=== PATIENT | female | born 1965 | race Caucasian/White ===

== ENCOUNTER 2022-02-09 13:37 | Outpatient (CLI) | payer BC, SELFPAY ==
--- NOTE | 2022-02-09 13:30 | CRLHL7_ITS ---
For Patients: As a result of the Century Cures Act, medical imaging exams and procedure reports are released immediately into your electronic medical record. You may view this report before your referring provider. If you have questions, please contact your health care provider. DXA BONE MINERAL DENSITY STUDY Current height (in): 69.0. Weight (lb): 150.0. Menopause age: 47. Ethnicity: White. Reason for exam: Screening. 1. Have you had a previous hip or vertebral fracture? No. 2. Have you had any fractures during your adult life which did not result from significant trauma (e.g., auto accident)? No. 3. Did either of your parents have a hip fracture? No. 4. Do you smoke? No. 5. Have you ever taken Glucocorticoids? No. 6. Do you have rheumatoid arthritis? No. 7. Do you have secondary osteoporosis? No. 8. Do you drink 3 or more alcoholic drinks per day? No. 9. Are you being treated for osteoporosis? No. 10. Have you ever taken any of the following medications: Actonel, Evista, Fosamax, Miacalcin, Reclast, Boniva, Forteo, HRT (i.e. estrogen/hormone therapy), Protelos, Prolia, Vitamin D, Calcium, other ??? please specify. ANSWER: Yes, calcium, vitamin D. 11. Do you have any of the following medical conditions: Anorexia or bulimia, asthma or emphysema, end stage renal disease, hyperparathyroidism, any seizure disorders, cancer, inflammatory bowel diseases, hysterectomy, other ??? please specify. ANSWER: No. 12. What was your maximum height (inches)? 69.5. 13. Do you perform weight bearing exercise regularly? Yes. 14. Do you regularly consume dairy products? Yes. 15. Do you drink caffeinated beverages? Yes. If female: 16. At what age did your period start? 12. 17. Are you premenopausal? No. 18. How many full term pregnancies have you had? 3. 19. Have you ever missed your period for more than 6 months in a row (not including or menopause)? Yes. TECHNIQUE: Bone mineral density study was performed using the Nanol[employer]. FINDINGS: The results of the study expressed as bone mineral density (BMD) are as follows: Lumbar spine L1 to L4: BMD: 0.939 g/cm2. T-score: -1.0. Z-score: 0.3. Neck Left: BMD: 0.693 g/cm2. T-score: -1.4. Z-score: -0.2. Right: BMD: 0.719 g/cm2. T-score: -1.2. Z-score: -0.0. Total Left: BMD: 0.864 g/cm2. T-score: -0.6. Z-score: 0.2. Right: BMD: 0.884 g/cm2. T-score: -0.5. Z-score: 0.3. IMPRESSION: Osteopenia. FRAX 10-year Fracture Risk Major Osteoporotic Fracture: 6.7 percent Hip Fracture: 0.6 percent Reported Risk Factors: [place] () Neck BMD = 0.693, BMI = 22.2 Yordy Carter M.D. Diagnostic Radiologist [email or web address] Transcribed: 12:00 pm DW/Dictated by: Yordy Carter MD @ 02/13/2022 9:21:00 AM (Electronically Signed)
== END 2022-02-09 13:38 | disposition home or self-care (01) ==
LOC: RAD 13:37
PROVIDERS: PCP Family Medicine; Visit Provider Family Medicine
DX: Z13.820 Encounter for screening for osteoporosis (principal); M85.89 Other specified disorders of bone density and structure, multiple sites
CPT/HCPCS: 77080

== ENCOUNTER 2022-03-08 14:39 | Outpatient (CLI) | payer BC, SELFPAY ==
--- NOTE | 2022-03-08 14:40 | CRLHL7_ITS ---
For Patients: As a result of the Century Cures Act, medical imaging exams and procedure reports are released immediately into your electronic medical record. You may view this report before your referring provider. If you have questions, please contact your health care provider. BILATERAL SCREENING MAMMOGRAM WITH COMPUTER-AIDED DETECTION AND TOMOSYNTHESIS TECHNIQUE: CC and MLO views were obtained. These mammographic images have been obtained using full-field digital technique. These mammographic images were interpreted with the benefit of computer-aided detection. Breast Tomosynthesis was used in this interpretation. COMPARISON FILM: 02/24/21, outside 11/28/19, [place] 11/26/18. FINDINGS: The breasts are heterogeneously dense, which may obscure small masses IMPRESSION: There is no radiographic evidence for malignancy. ASSESSMENT: BI-RADS Category 1: Negative RECOMMENDATION: Routine screening mammogram in 1 year. A lay language report of this examination will be provided to the patient. Yordy Carter M.D. Diagnostic Radiologist [email or web address] FLORY/Dictated by: Yordy Carter MD @ 03/10/2022 9:45:00 AM FLORY/Dictated by: Yordy Carter MD @ 03/10/2022 9:45:00 AM (Electronically Signed)
== END 2022-03-08 14:40 | disposition home or self-care (01) ==
LOC: MAMMO 14:40
PROVIDERS: PCP Family Medicine; Visit Provider Family Medicine
DX: Z12.31 Encounter for screening mammogram for malignant neoplasm of breast (principal); R92.2 Inconclusive mammogram
CPT/HCPCS: 77063; 77067

== ENCOUNTER 2023-01-26 07:45 | Outpatient (CLI) | payer BC, SELFPAY | END 2023-01-26 07:46 | disposition home or self-care (01) | LOC: NFLDREF 01-29 21:23 | PROVIDERS: PCP Family Medicine; Referring Provider Family Medicine; Visit Provider Family Medicine | DX: Z00.00 Encounter for general adult medical examination without abnormal findings (principal); D64.9 Anemia, unspecified; R53.83 Other fatigue; M85.80 Other specified disorders of bone density and structure, unspecified site; Z13.6 Encounter for screening for cardiovascular disorders; Z13.1 Encounter for screening for diabetes mellitus | CPT/HCPCS: 80061; 82306; 82947 ==

== ENCOUNTER 2023-01-30 13:29 | Outpatient (CLI) | payer BC, SELFPAY | END 2023-01-30 13:30 | disposition home or self-care (01) | PROVIDERS: PCP Family Medicine; Visit Provider Family Medicine | DX: Z00.00 Encounter for general adult medical examination without abnormal findings (principal); D64.9 Anemia, unspecified; R53.83 Other fatigue | CPT/HCPCS: 82607; 82728 ==

== ENCOUNTER 2023-04-03 08:21 | Outpatient (CLI) | payer BC, SELFPAY ==
--- NOTE | 2023-04-03 08:15 | CRLHL7_ITS ---
For Patients: As a result of the Cures Act, medical imaging exams and procedure reports are released immediately into your electronic medical record. You may view this report before your referring provider. If you have questions, please contact your health care provider. BILATERAL SCREENING MAMMOGRAM WITH COMPUTER-AIDED DETECTION AND TOMOSYNTHESIS TECHNIQUE: CC and MLO views were obtained. These mammographic images have been obtained using full-field digital technique. These mammographic images were interpreted with the benefit of computer-aided detection. Breast Tomosynthesis was used in this interpretation. COMPARISON FILM: 03/08/22, 02/24/21, 11/28/19. FINDINGS: The breasts are heterogeneously dense, which may obscure small masses IMPRESSION: There is no radiographic evidence for malignancy. ASSESSMENT: BI-RADS Category 1: Negative RECOMMENDATION: Routine screening mammogram in 1 year. A lay language report of this examination will be provided to the patient. MARINA WYLIE M.D. Diagnostic/Nuclear Medicine Radiologist [email or web address]:[email or web address] Transcribed: 8:27 a.ankit huber/Dictated by: Marina Wylie MD @ 04/03/2023 9:11:00 AM (Electronically Signed)
== END 2023-04-03 08:22 | disposition home or self-care (01) ==
LOC: MAMMO 08:22
PROVIDERS: PCP Family Medicine; Visit Provider Family Medicine
DX: Z12.31 Encounter for screening mammogram for malignant neoplasm of breast (principal); R92.2 Inconclusive mammogram
CPT/HCPCS: 77063; 77067

== ENCOUNTER 2023-04-04 14:30 | Outpatient (RCR) | payer BC, SELFPAY | END 2023-04-05 09:34 | disposition home or self-care (01) | PROVIDERS: PCP Family Medicine; Visit Provider Family Medicine | DX: M25.512 Pain in left shoulder (principal); M62.81 Muscle weakness (generalized); Z51.89 Encounter for other specified aftercare | CPT/HCPCS: 97110; 97161 ==

== ENCOUNTER 2024-01-31 08:40 | Outpatient (CLI) | payer BC, SELFPAY ==
--- OUTSIDE RECORDS SUMMARY | 2024-02-04 15:09 | XMS_ITS | Clinical Summary ---
Author Organization [facility] Address [place], [place] [address] Care Team Providers Care Nutritional Services Cook Name Role Phone Mine Aguirre MD Primary Care Provider + Allergies Active Allergy Reactions Criticality Noted Date Comments Codeine Vomiting 08/22/2023 Medications No known medications Social History Tobacco Use Types Packs/Day Years Used Date Smoking Tobacco: Never Smokeless Tobacco: Never Tobacco Cessation:Counseling Given: Yes Sex and Gender Information Value Date Recorded Sex Assigned at Not on file Gender Identity Not on file Sexual Orientation Not on file Obstetrics History Last Filed Vital Signs Vital Sign Reading Time Taken Comments Blood Pressure 101/65 08/22/2023 9:30 AM CDT tow er Pulse 68 08/22/2023 9:30 AM CDT Temperature - - Respiratory Rate - - Oxygen Saturation 99% 08/22/2023 9:30 AM CDT Inhaled Oxygen Concentration - - Weight 67.1 kg (148 lb) 08/22/2023 9:30 AM CDT Height - - Body Mass Index - - Plan of Treatment Health Maintenance Due Date Last Done Comments Tdap 07/06/1975 Depression screening for age 12+ 1976 HIV for age 15-65 07/06/1979 BMI (ht and wt on same day) for age 18+ 1982 Hepatitis C screening for age 18-79 1982 Tetanus booster 1984 Colonoscopy through age 75 2009 Lipids for age 45-75 2009 Mammogram for age 45-75 2009 Zoster (shingles) series for age 50+ (1 of 2) 2014 COVID-19 vaccine series ( season) 2023 01/26/2023, 01/20/2022, 09/10/2021, Additional history exists Influenza for age 50-64 12/16/2023 Pap test for age 21-65 01/26/2025 01/26/2022, 2021 Pneumococcal series for age 6-64 Aged Out No longer eligible based on patient's age to complete this topic Procedures Procedure Name Priority Date/Time Associated Diagnosis Comments HPV HIGH RISK Routine 01/26/2022 11:10 AM CDT Encounter for screening for malignant neoplasm of cervix from Last 3 Months or Most Recently Relevant to Health Maintenance Results * HPV HIGH RISK (01/26/2022 11:10 AM CDT) TYPE 16 Negative Negative 02/02/2022 11:31 AM CDT [facility] TYPE 18 Negative Negative 02/02/2022 11:31 AM CDT [facility] OTHER HIGH RISK TYPES Negative Negative 02/02/2022 11:31 AM CDT [facility] Other (Cervical) 01/26/2022 11:10 AM CDT 01/30/2022 10:18 AM CDT Narrative [facility] - 02/02/2022 11:31 AM CDT HPV types 16, 18, 31, 33, 35, 39, 45, 51, 52, 56, 58, 59, 66 and 68 DNA were undetectable or below the pre-set threshold. Methodology: Keiko Idania 4800 HPV Test Mine Aguirre MD MICROBIOLOGY [facility] [address] [place] [address], [place] from Last 3 Months or Most Recently Relevant to Health Maintenance Care Teams Nutritional Services Cook Relationship Specialty Start Date End Date Mine Aguirre MD [address] [place] [address] PCP - General Family Practice 08/22/23
== END 2024-01-31 08:41 | disposition home or self-care (01) ==
LOC: NFLDREF 02-04 15:08
PROVIDERS: PCP Family Medicine; Referring Provider Family Medicine; Visit Provider Family Medicine
DX: D64.9 Anemia, unspecified (principal); M85.80 Other specified disorders of bone density and structure, unspecified site; Z13.6 Encounter for screening for cardiovascular disorders; Z13.1 Encounter for screening for diabetes mellitus
CPT/HCPCS: 80061; 82306; 82947

== ENCOUNTER 2024-04-25 09:24 | Outpatient (CLI) | payer BC, SELFPAY ==
--- NOTE | 2024-04-25 09:15 | CRLHL7_ITS ---
For Patients: As a result of the Century Cures Act, medical imaging exams and procedure reports are released immediately into your electronic medical record. You may view this report before your referring provider. If you have questions, please contact your health care provider. BILATERAL SCREENING MAMMOGRAM WITH COMPUTER-AIDED DETECTION AND TOMOSYNTHESIS TECHNIQUE: CC and MLO views were obtained. These mammographic images have been obtained using full-field digital technique. These mammographic images were interpreted with the benefit of computer-aided detection. Breast tomosynthesis was used in this interpretation. COMPARISON FILM: 02/24/2021, 03/08/2022, 04/03/2023. FINDINGS: The breasts are heterogeneously dense, which may obscure small masses. IMPRESSION: There is no radiographic evidence for malignancy. ASSESSMENT: BI-RADS Category 1: Negative RECOMMENDATION: Routine screening mammogram in 1 year. A lay language report of this examination will be provided to the patient. YORDY FLOREZ M.D. Diagnostic Radiologist [email or web address] FITZ/[email or web address] Transcribed: 04/28/2024, 10:[address]/Dictated by: Yordy Florez MD @ 04/25/2024 12:13:00 PM (Electronically Signed)
== END 2024-04-25 09:25 | disposition home or self-care (01) ==
LOC: MAMMO 09:25
PROVIDERS: PCP Family Medicine; Visit Provider Family Medicine
DX: Z12.31 Encounter for screening mammogram for malignant neoplasm of breast (principal); R92.333 Mammographic heterogeneous density, bilateral breasts
CPT/HCPCS: 77063; 77067

== ENCOUNTER 2024-06-26 08:10 | Outpatient (CLI) | payer BC, SELFPAY ==
--- NOTE | 2024-06-26 09:18 | P.ANES_ITS ---
Anesthesia Charges Start Date/Time Anesthesia Start Date: 06/26/24 Anesthesia Start Time: 08:40 Stop Date/Time Anesthesia Stop Date: 06/26/24 Anesthesia Stop Time: 09:14 Coding CPT Codes CPT Codes: MEL LWR INTST SCR COLSC - 16709 ([id number]) P1 - NORMAL HEALTHY PATIENT, QX - SHIPPING ROOM HELPER SVTammy W/ MED DIRECTION, QK - BROKE BEATER OPERATOR 2-4 CNCRNT ANEDel PROC
--- NOTE | 2024-06-26 09:18 | W.ANESCHARGE ---
Anesthesia Charges Start Date/Time Anesthesia Start Date: 06/26/24 Anesthesia Start Time: 08:40 Stop Date/Time Anesthesia Stop Date: 06/26/24 Anesthesia Stop Time: 09:14 Coding CPT Codes CPT Codes: MEL LWR INTST SCR COLSC - 99557 ([id number]) P1 - NORMAL HEALTHY PATIENT, QX - SKILL TRAINING PROGRAM COORDINATOR SVTammy W/ MED DIRECTION, QK - DIRECTOR OF BRAND MARKETING 2-4 CNCRNT ANEDel PROC
--- NOTE | 2024-06-26 09:27 | P.ANES_ITS ---
Anesthesia Charges Start Date/Time Anesthesia Start Date: 06/26/24 Anesthesia Start Time: 08:40 Stop Date/Time Anesthesia Stop Date: 06/26/24 Anesthesia Stop Time: 09:14 Coding CPT Codes CPT Codes: MEL LWR INTST SCR COLSC - 33835 ([id number]) P1 - NORMAL HEALTHY PATIENT, QK - ENGINE EMISSION TECHNICIAN 2-4 CNCRNT ANES PROC, QX - CUSTOMER SUCCESS INTERN SVC W/ MED DIRECTION
--- NOTE | 2024-06-26 09:27 | W.ANESCHARGE ---
Anesthesia Charges Start Date/Time Anesthesia Start Date: 06/26/24 Anesthesia Start Time: 08:40 Stop Date/Time Anesthesia Stop Date: 06/26/24 Anesthesia Stop Time: 09:14 Coding CPT Codes CPT Codes: MEL LWR INTST SCR COLSC - 25479 ([id number]) P1 - NORMAL HEALTHY PATIENT, QK - CONTRACT LAW SPECIALIST 2-4 CNCRNT ANES PROC, QX - BALLOON PILOT SVC W/ MED DIRECTION
== END 2024-06-26 08:11 | disposition home or self-care (01) ==
LOC: OP CLINIC 08:10
PROVIDERS: PCP Family Medicine; Visit Provider Surgery
DX: Z12.11 Encounter for screening for malignant neoplasm of colon (principal)
CPT/HCPCS: 00812; 45378; J2405; J2704

== ENCOUNTER 2025-02-03 07:47 | Outpatient (CLI) | payer BC, SELFPAY | END 2025-02-03 07:48 | disposition home or self-care (01) | LOC: NFLDREF 02-06 09:37 | PROVIDERS: PCP Family Medicine; Referring Provider Family Medicine; Visit Provider Family Medicine | DX: E78.5 Hyperlipidemia, unspecified (principal); D64.9 Anemia, unspecified; M85.859 Other specified disorders of bone density and structure, unspecified thigh; R53.83 Other fatigue | CPT/HCPCS: 80061; 82306; 82728 ==

== ENCOUNTER 2025-03-11 15:28 | Outpatient (CLI) | payer BC, SELFPAY ==
--- NOTE | 2025-03-11 15:30 | CRLHL7_ITS ---
For Patients: As a result of the Century Cures Act, medical imaging exams and procedure reports are released immediately into your electronic medical record. You may view this report before your referring provider. If you have questions, please contact your health care provider. DXA BONE MINERAL DENSITY STUDY Current height (in): 69.0 Weight (lb): 150.0 Menopause age: 47 Ethnicity: White 1. Have you had a previous hip or vertebral fracture? No. 2. Have you had any fractures during your adult life which did not result from significant trauma (e.g., auto accident)? No. 3. Did either of your parents have a hip fracture? No. 4. Do you smoke? No. 5. Have you ever taken Glucocorticoids? No. 6. Do you have rheumatoid arthritis? No. 7. Do you have secondary osteoporosis? No. 8. Do you drink 3 or more alcoholic drinks per day? No. 9. Are you being treated for osteoporosis? No. 10. Have you ever taken any of the following medications: Actonel, Evista, Fosamax, Miacalcin, Reclast, Boniva, Forteo, HRT (i.e. estrogen/hormone therapy), Protelos, Prolia, Vitamin D, Calcium, other ??? please specify. ANSWER: Yes, Vitamin D, and Calcium. 11. Do you have any of the following medical conditions: Anorexia or bulimia, asthma or emphysema, end stage renal disease, hyperparathyroidism, any seizure disorders, cancer, inflammatory bowel diseases, hysterectomy, other ??? please specify. ANSWER: No. 12. What was your maximum height (inches)? 69.5. 13. Do you perform weight bearing exercise regularly? Yes. 14. Do you regularly consume dairy products? Yes. 15. Do you drink caffeinated beverages? Yes. 16. At what age did your period start? 12. 17. Are you premenopausal? No. 18. How many fullterm pregnancies have you had? 3. 19. Have you ever missed your period for more than 6 months in a row (not including or menopause)? No. TECHNIQUE: Bone mineral density study was performed using the i3 membrane. FINDINGS: The results of the study expressed as bone mineral density (BMD) are as follows: Lumbar spine L1 to L4: BMD: 0.924 g/cm2. T-score: -1.1. Z-score: 0.3. Neck Left: BMD: 0.707 g/cm2. T-score: -1.3. Z-score: 0.0. Right: BMD: 0.729 g/cm2. T-score: -1.1. Z-score: 0.2. Total Left: BMD: 0.832 g/cm2. T-score: -0.9. Z-score: 0.1. Right: BMD: 0.901 g/cm2. T-score: -0.3. Z-score: 0.6. IMPRESSION: Osteopenia. COMPARISON: Compared with scan of 02/09/2022, the bone mineral density has decreased by 1.6 percent at the spine and decreased by 0.8 percent at the hip. FRAX 10-year Fracture Risk Major Osteoporotic Fracture: 7.2 percent Hip Fracture: 0.6 percent Reported Risk Factors: [place] () Neck BMD=7.2, BMI=0.6. Sarita Dickson M.D. Body/Diagnostic Radiologist [email or web address] TREY/nery / DW/Dictated by: Sarita Dickson MD @ 03/14/2025 3:43:00 AM (Electronically Signed)
== END 2025-03-11 15:29 | disposition home or self-care (01) ==
LOC: RAD 15:29
PROVIDERS: PCP Family Medicine; Visit Provider Family Medicine
DX: M85.859 Other specified disorders of bone density and structure, unspecified thigh (principal); M85.89 Other specified disorders of bone density and structure, multiple sites
CPT/HCPCS: 77080